=== PATIENT | male | born 1940 | race Caucasian/White ===

== ENCOUNTER 2019-01-09 15:21 | Emergency (ER) | payer BC ==
[~2019-01-09] VITALS: Ht 167.6 cm; Wt 53.5 kg
[2019-01-09] MEDS ORDERED: cefTRIAXone SOD 1,000 MG VL IM ONE (16:45)
[2019-01-09 17:27] VITALS: BP 142/90
== END 2019-01-09 17:45 | disposition home or self-care (01) ==
LOC: ER 15:30
DX: L03.011 Cellulitis of right finger (principal)
CPT/HCPCS: 73130; 96372; 99283; J0696

== ENCOUNTER 2025-02-03 16:59 | Inpatient (IN) | payer BC ==
[~2025-02-03] VITALS: Ht 170.2 cm; Wt 58.8 kg
--- NOTE | 2025-02-03 17:13 | ED.PDOC ---
Musculoskeletal HPI Comments Discharge diagnosis 05/17/2013 - Fracture left femoral neck Had Placement of screws left femoral neck fracture- 05/15/13 HPI: 84-year-old male presents to the emergency department via EMS with a chief complaint of LT hip pain. Per EMS, patient's friend called 911 due to patient complaining of LT hip pain. Patient is a poor historian, states he has been experiencing LT hip pain since high school. No other symptoms or modifying factors present at this time. Initial Vitals BP: 138/88 HR: 84 RR: 16 O2 Sat: 96% Past Medical history: unknown Past Surgical history: unknown Medications: unknown Social History: unknown Allergies: NKDA HPI: Poor Historian. Past Medical History: Past Surgical History: REVIEW OF SYSTEMS: CONSTITUTIONAL: Denies acute: fever, diaphoresis, chills, generalized weakness. HEAD: Denies acute: headache, photophobia Eyes: Denies acute: Double vision, vision loss, eye pain, eye discharge. EARS: Denies acute: tinnitus, hearing loss, ear discharge, ear pain, THROAT: Denies acute: sore throat, swelling, difficulty swallowing , pain with swallowing, change in voice. NECK: Denies acute: neck pain, neck swelling, stiff neck. HEART: Denies acute : chest pain, palpitations, LUNGS: Denies acute: SOB, wheezing, cough, hemoptysis ABDOMEN: Denies acute: abdominal pain, Nausea, Vomiting, diarrhea, melena , hematemesis, hematochezia SKIN: Denies acute: rash, redness, lesions, itchiness. EXTREMITIES: Denies acute: calf pain, numbness, tingling, weakness, Denies acute: Low back pain. Neuro: Denies acute: focal neurological deficit, motor or sensory focal neurological deficit, tremors, seizure like activity, confusion, dizziness, change in mental status, loss of bowel or bladder function, cauda equina like symptoms. : Denies acute: dysuria, hematuria, flank pain, increase in urinary frequency. PSYCH: Denies acute: hallucination, suicidal ideation, homicidal ideation. PHYSICAL EXAM: General: ---no-----acute distress, awake and alert. Head: normocephalic, atraumatic. Neck: supple, trachea is midline, no swelling. Throat: Normal phonation. Eyes:, no erythema, no purulent discharge, no proptosis, no icterus. Heart: regular rate, regular rhythm, no significant murmur appreciated. Lungs: no apparent respiratory distress, Able to speak in full sentences. No wheezing, no rhonchi, no crackles. No stridors Clear to auscultation bilaterally. Abdomen: non tender to palpation, non distended, soft, no guarding, no rebound, + bowel sounds. Neuro: Awake, Alert, oriented to name, self, situation, follows commands GCS=15. Speech is normal. Skin: no petechia, no purpura, no cyanosis, non-pale, not jaundice. Lower extremities: --no - Pitting edema no deformity, no focal swelling, no calf TTP. Decreased range of motion of the left lower extremity secondary to left hip pain. Unable to fully flex the left hip and knee. Patient is neurovascularly intact in the affected extremity. Motor and sensory are present distally. Pedal pulses palpable. Makes eye contact. moves all four extremities. Face: no apparent facial droop. When attempting to stand up it is very difficult for the patient. He is unable to bear weight on his left hip. Pedal pulses are palpable. ED COURSE: DISCLAIMER: This medical document was created using an electronic medical record system with voice recognition software and computerized dictation system. Although this document has been carefully reviewed, there might still be some phonetic and typographical errors. Occasional wrong-word or "sound-alike" substitutions may have occurred due to the inherent limitations of voice recognition software. These areas are purely typographical due to imperfections of the software programs and do not reflect any compromise in the patient's medical care. Please read the chart carefully and recognize, using context, where these substitutions have occurred. Chief Complaint: Upper Extremity Time Seen by MD: 17:05 Primary Care Provider: nate Ivory Notes: Medications, Allergies Allergies: Coded Allergies: NO KNOWN ALLERGIES (Unverified , 05/14/13) Home Meds No Active Prescriptions or Reported Meds Information Source: Patient, Emergency Med Personnel Mode of Arrival: EMS Location: Left Extremity Location: Hip Timing: Months Prehospital treatment: None Severity: Moderate Bear Weight: Limited Pain: Moderate Mechanism: Spontaneous Onset of Symptoms: Spontaneous Symptoms: Pain DVT Risk Factors: NONE Past Medical History PAST MEDICAL HISTORY: Unknown Surgical History: Denies all surgeries Family History Family History: Unobtainable Social History Smoker: Unknown Alcohol: Unknown Drugs: Unknown Lives In: Home Was a procedure done? Was a procedure done?: No Differential Diagnosis EXT Differential Diagnosis: Compartment Syndrome, Fracture, Sprain, Dislocation, Gout, DJD, Contusion, Strain, Septic, Neurovascular injury, Arthritis, Bursitis X-Ray, Labs, Meds, VS Vital Signs Date Time Temp Pulse Resp B/P (MAP) Pulse Ox O2 Delivery O2 Flow Rate FiO2 02/03/25 19:05 97.6 85 16 127/67 (87) 96 97.6 02/03/25 17:00 98.0 84 16 138/88 (105) 96 98.0 Lab Test 02/03/25 18:35 Range/Units White Blood Count 8.6 4.4-10.8 10^3/uL Red Blood Count 4.58 4.5-5.90 10^6/uL Hemoglobin 14.4 13.5-17.5 g/dL Hematocrit 41.5 41.0-53.0 % Mean Corpuscular Volume 90.6 80.0-100.0 fL Mean Corpuscular Hemoglobin 31.4 28.0-32.0 pg Mean Corpuscular Hemoglobin Concent 34.7 32.0-36.0 g/dL Red Cell Distribution Width 13.8 11.8-14.3 % Platelet Count 179 140-450 10^3/uL Mean Platelet Volume 8.4 6.9-10.8 fL Neutrophils (%) (Auto) 81.2 H 37.0-80.0 % Lymphocytes (%) (Auto) 11.9 10.0-50.0 % Monocytes (%) (Auto) 6.2 0.0-12.0 % Eosinophils (%) (Auto) 0.3 0.0-7.0 % Basophils (%) (Auto) 0.4 0.0-2.0 % Neutrophils # (Auto) 7.0 1.6-8.6 10 ^3/uL Lymphocytes # (Auto) 1.0 0.4-5.4 10 ^3/uL Monocytes # (Auto) 0.5 0-1.3 10 ^3/uL Eosinophils # (Auto) 0 0-0.8 10 ^3/uL Basophils # (Auto) 0 0-0.2 10 ^3/uL Nucleated Red Blood Cells 0.0 % Sodium Level 142 136-145 mmol/L Potassium Level 3.8 3.5-5.1 mmol/L Chloride Level 108 H 98-107 mmol/L Carbon Dioxide Level 26 20-31 mmol/L Anion Gap 8 5-15 Blood Urea Nitrogen 18 9-23 mg/dL Creatinine 1.20 0.700-1.30 mg/dL Glomerular Filtration Rate Calc 59 >90 mL/min BUN/Creatinine Ratio 15.0 10.0-20.0 Serum Glucose 109 H 74-106 mg/dL Calcium Level 9.9 8.7-10.4 mg/dL Total Bilirubin 1.2 H 0.2-1.0 mg/dL Aspartate Amino Transferase (AST) 22 <34 U/L Alanine Aminotransferase (ALT) 21 7-40 U/L Alkaline Phosphatase 75 46-116 U/L Total Protein 8.0 5.7-8.2 g/dL Albumin 4.8 3.2-4.8 g/dL [place] [id number] Ph: [phone] DIAGNOSTIC IMAGING Diagnostic Imaging Report : [id number] Signed PATIENT: JESSICA RASHIDCCT: [id number] UNIT: [id number] : 1940 LOC: ER ROOM / BED: / AGE / SEX: 84 / M ADM STATUS: REG ER SERVICE [id number] ORDERING PHYSICIAN: KUSH RAMON DO PROCEDURE(s): ABPL - CT AB PEL WO CON-NO ORAL OR IV REASON: L hip pain fx ORDER NUMBER(s): [id number], ACCESSION NUMBER(s): [id number] Exam: CT CT AB PEL WO CON-NO ORAL OR IV History: L hip pain fx, abdominal pain Comparison Study: None TECHNIQUE: Multidetector CT of the abdomen and pelvis was performed from lung bases to pubic symphysis. Imaging was performed without IV contrast. Axial, coronal, and sagittal multiplanar reformats were obtained from the axial data set by the technologist. RADIATION DOSE: DLP 271.17 mGy.cm; CTDI vol 5.2 mGy. Findings: Limited evaluation of the solid organs in the absence of IV contrast. Liver: Unremarkable. Spleen: Indeterminate approximately 2.9 cm lesion within the spleen with additional too small to characterize splenic lesions. Pancreas: Unremarkable. Gallbladder: Unremarkable. Adrenals: Unremarkable Kidneys: Right renal cyst. No hydronephrosis. Pelvic Viscera: Enlarged prostate. Vasculature: Mild atherosclerotic aortoiliac calcifications. Retroperitoneum: There is mild presacral stranding, nonspecific. Bowel: Suboptimally evaluated without evidence for bowel obstruction. Musculoskeletal: There is an age-indeterminate mild compression fracture of the superior endplate of L3 without osseous retropulsion. Age indeterminate though likely acute nondisplaced fractures of the superior and inferior left pubic ramus. Surgical screws are present within the left proximal femur. Soft tissues: Unremarkable Lungs: Emphysema. Impression: 1. Age-indeterminate though likely acute nondisplaced fractures of the left superior and inferior pubic rami. 2. Age-indeterminate mild compression fracture of the superior endplate of L3 without osseous retropulsion. 3. Mild presacral stranding, nonspecific. 4. Indeterminate approximately 2.8 cm splenic lesion. Comparison with any prior outside imaging is suggested in assessing acuity given interval change. This may be further evaluated with a nonemergent MRI of the abdomen if clinically indicated. ATED BY: SUMIT ROMO MD DICTATED DATE/TIME: 02/03/251906 SIGNED BY: SUMIT ROMO MD SIGNED DATE/TIME: 02/03/251906 CC: Time of 1ST Reevaluation: 17:35 Reevaluation 1ST: Unchanged Time of 2ND Reevaluation: 21:16 Reevaluation 2ND: Unchanged Patient Education/Counseling: Diagnosis, Treatment Family Education/Counseling: No Family Present Comments Patient presented with the above HPI.---left hip pain---workup was initiated. patient was found with the above mentioned diagnosis. the following medications were ordered: please refer to order lists of meds and tests obtained by myself Dr. Ramon. Patient ED course and VS have been stabilized. Patient has been reassessed in the ED and remained in a stable condition. Patient has been observed in the ED adequate length of time to insure improvement/stability. Escalation of care considered: Consideration of escalation to observation or admission Patient is a fall risk. Patient unable to ambulate on his extremity. No family members available at bedside. Patient was ADMITTED to the medicine team for further evaluation and treatment of their presentation. All the reports of any imaging studies that were ordered by myself were reviewed by myself. Departure 1 Departure Time of Disposition: 17:24 Impression: Primary Impression: Left hip pain Additional Impressions: Difficulty in walking Pubic ramus fracture Abnormal CT scan Compression fracture of L3 vertebra Risk for falls Disposition: ADMITTED INPATIENT Admit to: Tele Condition: Guarded e-Prescriptions No Active Prescriptions or Reported Meds Discharged With: Self Critical Care Note Critical Care Time?: No I personally scribed for KUSH RAMON DO ([email or web address]) on 02/03/25 at 17:13. Electronically submitted by Lauren Zamora ([email or web address]). I personally scribed for KUSH RAMON DO ([email or web address]) on 02/03/25 at 17:23. Electronically submitted by Lauren Zamora ([email or web address]). I personally scribed for KUSH RAMON DO ([email or web address]) on 02/03/25 at 19:19. Electronically submitted by Lauren Zamora ([email or web address]). I personally scribed for KUSH RAMON DO ([email or web address]) on 02/03/25 at 19:20. Electronically submitted by Lauren Zamora ([email or web address]). KUSH RAMON DO Feb 03, 2025 17:13
[2025-02-03 19:06] LABS: Basophils # (auto) 0 10 ^3/uL (0-0.2); Basophils % (auto) 0.4 % (0.0-2.0); Eosinophils # (auto) 0 10 ^3/uL (0-0.8); Eosinophils % (auto) 0.3 % (0.0-7.0); Hematocrit 41.5 % (41.0-53.0); Hemoglobin 14.4 g/dL (13.5-17.5); Lymphocytes % (auto) 11.9 % (10.0-50.0); Mean Corpuscular Hemoglobin 31.4 pg (28.0-32.0); Mean Corpuscular Hgb Conc. 34.7 g/dL (32.0-36.0); Mean Corpuscular Volume 90.6 fL (80.0-100.0); Monocytes # (auto) 0.5 10 ^3/uL (0-1.3); Monocytes % (auto) 6.2 % (0.0-12.0); Neutrophils % (auto) 81.2 % (37.0-80.0); Platelet Count (auto) 179 10^3/uL (140-450); Red Blood Cells 4.58 10^6/uL (4.5-5.90); Red Cell Distribution Width 13.8 % (11.8-14.3); White Blood Cell 8.6 10^3/uL (4.4-10.8)
--- NOTE | 2025-02-03 19:11 | DVH ---
Exam: CT CT AB PEL WO CON-NO ORAL OR IV History: L hip pain fx, abdominal pain Comparison Study: None TECHNIQUE: Multidetector CT of the abdomen and pelvis was performed from lung bases to pubic symphysi s. Imaging was performed without IV contrast. Axial, coronal, and sagittal multiplanar reformats were obtained from the axial data set by the technologist. RADIATION DOSE: DLP 271.17 mGy.cm; CTDI vol 5.2 mGy. Findings: Limited evaluation of the solid organs in the absence of IV contrast. Liver: Unremarkable. Spleen: Indeterminate approximately 2.9 cm lesion within the spleen with additional too small to mariluz racterize splenic lesions. Pancreas: Unremarkable. Gallbladder: Unremarkable. Adrenals: Unremarkable Kidneys: Right renal cyst. No hydronephrosis. Pelvic Viscera: Enlarged prostate. Vasculature: Mild atherosclerotic aortoiliac calcifications. Retroperitoneum: There is mild presacral stranding, nonspecific. Bowel: Suboptimally evaluated without evidence for bowel obstruction. Musculoskeletal: There is an age-indeterminate mild compression fracture of the superior endplate of L3 without osseous retropulsion. Age indeterminate though likely acute nondisplaced fractures of the superior and inferior left pubic ramus. Surgical screws are present within the left proximal femur. Soft tissues: Unremarkable Lungs: Emphysema. Impression: 1. Age-indeterminate though likely acute nondisplaced fractures of the left superior and inferior pub ic rami. 2. Age-indeterminate mild compression fracture of the superior endplate of L3 without osseous retropu lsion. 3. Mild presacral stranding, nonspecific. 4. Indeterminate approximately 2.8 cm splenic lesion. Comparison with any prior outside imaging is s uggested in assessing acuity given interval change. This may be further evaluated with a nonemergent MRI of the abdomen if clinically indicated.
[2025-02-03 19:30] LABS: Alanine Aminotransferase 21 U/L (7-40); Alkaline Phosphatase 75 U/L (46-116); Anion Gap 8 (5-15); Aspartate Aminotransferase 22 U/L (<34); Blood Urea Nitrogen 18 mg/dL (9-23); Calcium 9.9 mg/dL (8.7-10.4); Carbon Dioxide 26 mmol/L (20-31); Potassium 3.8 mmol/L (3.5-5.1); Sodium 142 mmol/L (136-145)
[2025-02-03 19:32] LABS: Albumin 4.8 g/dL (3.2-4.8); Bilirubin, Total 1.2 mg/dL (0.2-1.0); Chloride 108 mmol/L (98-107); Glucose 109 mg/dL (74-106)
[2025-02-03] MEDS ORDERED: ACETAMINOPHEN 325 MG TAB PO ONE (22:30)
[2025-02-03] MEDS ORDERED: MORPHINE SULFATE INJ 2 MG/ml SYRG IV PRN ×2 (22:30→23:30)
[2025-02-03] MEDS ORDERED: ONDANSETRON HCL 4 MG/2 ML VIAL IV PRN (22:30)
[2025-02-03] MEDS ORDERED: DOCUSATE SOD 100 MG CAP PO PRN (22:30)
--- NOTE | 2025-02-03 23:23 | DVHHP2 ---
History of Present Illness Reason for Visit: Pubic ramus fracture History of Present Illness The patient is a 84-year-old male with unknown past medical history presented to [facility] ED with complaint of left hip pain. Patient's friend called 911 due to constant intensive left hip pain, rating 10/10, getting worse that prompted this visit. Patient reports he has been experiencing left hip pain since high school. Patient was seen and evaluated in the ED, laboratory data shows WBC 8.6, platelets 179, sodium 142, potassium 3.8, BUN 18, creatinine 1.20, glucose 109, calcium 9.9, total bilirubin 1.2, blood pressure 128/66, heart rate 85, temperature 97.6 F, O2 saturation 96% on room air. Abdo men/pelvis CT revealing age indeterminate though likely acute nondisplaced fracture of the left superior and inferior pubic rami, age indeterminate mild compression fracture of the superior endplate of L3 without osseous retropulsion, mild presacral stranding, nonspecific; indeterminate a proximally 2.8 cm splenic lesion. Patient was given morphine sulfate 2 mg IV x1, please see medication orders section in the computer. On my assessment, patient denied chest pain, no headache, no dizziness, no shortness a breath, no abdominal pain, no nausea, no vomiting, no fever, no chills. Patient was admitted for further evaluation and medical management. Past Medical History Hip pain Past Surgical History Denies all surgeries Family History Reviewed, noncontributory to the management of this case. Past Social History The patient lives at home, denies smoking, alcohol or illicit drugs abuse. Review of Systems Constitutional: Yes: Weakness; No: Fever, Chills, Sweats, Malaise, Other Eyes: No: Pain, Vision change, Conjunctivae inflammation, Eyelid inflammation, Other, Redness ENT: No: Ear pain, Ear discharge, Nose pain, Nose discharge, Nose congestion, Mouth pain, Mouth swelling, Throat pain, Throat swelling, Other Respiratory: No: Cough, Dry, Shortness of breath, SOB with excertion, Wheezing, Hemoptysis, Pleuritic Pain, Sputum, Wheezing, Other Cardiovascular: No: Chest Pain, Palpitations, Orthopnea, Paroxysmal Noc. Dyspnea, Edema, Lt Headedness, Other Gastrointestinal: No: Nausea, Vomiting, Abdominal Pain, Diarrhea, Constipation, Melena, Hematochezia, Other Genitourinary: No Dysuria, No Frequency, No Incontinence, No Hematuria, No Ret ention, No Other Musculoskeletal: other (Left hip pain), back pain; No: neck pain, shoulder pain, arm pain, hand pain, leg pain, foot pain Skin: No: Rash, Lesions, Jaundice, Bruising, Other Neurological: No: Weakness, Numbness, Incoordination, Change in speech, Confusion, Seizures, Other Allergies: Coded Allergies: NO KNOWN ALLERGIES (Unverified , 05/14/13) Medications Current Medications Medications Dose Ordered Sig/Titus Route Start Time Stop Time Status Last Admin Dose Admin Atorvastatin Calcium 10 mg HS PO 02/04/25 22:00 Tamsulosin HCl 0.4 mg QPM PO 02/04/25 18:00 Donepezil HCl 10 mg HS PO 02/04/25 22:00 Sodium Chloride 10 ml Q8HR IV 02/04/25 06:00 Acetaminophen/ Hydrocodone Bitart 1 tab Q4HP PRN PO 02/03/25 22:30 Ondansetron HCl 4 mg Q4HP PRN IV 02/03/25 22:30 Docusate Sodium 100 mg BIDPRN PRN PO 02/03/25 22:30 Acetaminophen 650 mg Q6HP PRN PO 02/03/25 22:30 Morphine Sulfate 2 mg Q4HPRN PRN IV 02/03/25 22:30 Exam Vital Signs Vital Signs Date Time Temp Pulse Resp B/P (MAP) Pulse Ox O2 Delivery O2 Flow Rate FiO2 02/03/25 22:51 97.9 81 16 147/77 (100) 96 97.9 General Appearance: Alert, Oriented X3, Cooperative, No acute distress HEENT: Atraumatic, PERRLA, EOMI, Mucous membr. moist/pink Respiratory: Normal air movement Cardiovascular: Regular rate, Normal S1, Normal S2, No murmurs Abdominal: Normal bowel sounds, Soft, No tenderness, No hepatospenomegaly, No masses Extremities: No clubbing, No cyanosis, No edema, Normal pulses, Other (Hip tenderness) Skin: No rashes, No breakdown, No significant lesion Neuro: Normal speech, Normal tone, Sensation intact, Cranial nerves 3-12 NL, Reflexes 2+, Other (Generalized weakness, unsteady gait.) Psych/Mental Status: Mental status NL, Mood NL Labs/Xrays Labs Test 02/03/25 18:35 Range/Units White Blood Count 8.6 4.4-10.8 10^3/uL Red Blood Count 4.58 4.5-5.90 10^6/uL Hemoglobin 14.4 13.5-17.5 g/dL Hematocrit 41.5 41.0-53.0 % Mean Corpuscular Volume 90.6 80.0-100.0 fL Mean Corpuscular Hemoglobin 31.4 28.0-32.0 pg Mean Corpuscular Hemoglobin Concent 34.7 32.0-36.0 g/dL Red Cell Distribution Width 13.8 11.8-14.3 % Platelet Count 179 140-450 10^3/uL Mean Platelet Volume 8.4 6.9-10.8 fL Neutrophils (%) (Auto) 81.2 H 37.0-80.0 % Lymphocytes (%) (Auto) 11.9 10.0-50.0 % Monocytes (%) (Auto) 6.2 0.0-12.0 % Eosinophils (%) (Auto) 0.3 0.0-7.0 % Basophils (%) (Auto) 0.4 0.0-2.0 % Neutrophils # (Auto) 7.0 1.6-8.6 10 ^3/uL Lymphocytes # (Auto) 1.0 0.4-5.4 10 ^3/uL Monocytes # (Auto) 0.5 0-1.3 10 ^3/uL Eosinophils # (Auto) 0 0-0.8 10 ^3/uL Basophils # (Auto) 0 0-0.2 10 ^3/uL Nucleated Red Blood Cells 0.0 % Sodium Level 142 136-145 mmol/L Potassium Level 3.8 3.5-5.1 mmol/L Chloride Level 108 H 98-107 mmol/L Carbon Dioxide Level 26 20-31 mmol/L Anion Gap 8 5-15 Blood Urea Nitrogen 18 9-23 mg/dL Creatinine 1.20 0.700-1.30 mg/dL Glomerular Filtration Rate Calc 59 >90 mL/min BUN/Creatinine Ratio 15.0 10.0-20.0 Serum Glucose 109 H 74-106 mg/dL Calcium Level 9.9 8.7-10.4 mg/dL Total Bilirubin 1.2 H 0.2-1.0 mg/dL Aspartate Amino Transferase (AST) 22 <34 U/L Alanine Aminotransferase (ALT) 21 7-40 U/L Alkaline Phosphatase 75 46-116 U/L Total Protein 8.0 5.7-8.2 g/dL Albumin 4.8 3.2-4.8 g/dL PATIENT: JESSICA RASHIDCCT: [id number] UNIT: [id number] : 1940 LOC: ER ROOM / BED: / AGE / SEX: 84 / M ADM STATUS: REG ER SERVICE [id number] ORDERING PHYSICIAN: KUSH RAMON DO PROCEDURE(s): ABPL - CT AB PEL WO CON-NO ORAL OR IV REASON: L hip pain fx ORDER NUMBER(s): [id number], ACCESSION NUMBER(s): [id number] Exam: CT CT AB PEL WO CON-NO ORAL OR IV History: L hip pain fx, abdominal pain Comparison Study: None TECHNIQUE: Multidetector CT of the abdomen and pelvis was performed from lung bases to pubic symphysis. Imaging was performed without IV contrast. Axial, coronal, and sagittal multiplanar reformats were obtained from the axial data set by the technologist. RADIATION DOSE: DLP 271.17 mGy.cm; CTDI vol 5.2 mGy. Findings: Limited evaluation of the solid organs in the absence of IV contrast. Liver: Unremarkable. Spleen: Indeterminate approximately 2.9 cm lesion within the spleen with additional too small to characterize splenic lesions. Pancreas: Unremarkable. Gallbladder: Unremarkable. Adrenals: Unremarkable Kidneys: Right renal cyst. No hydronephrosis. Pelvic Viscera: Enlarged prostate. Vasculature: Mild atherosclerotic aortoiliac calcifications. Retroperitoneum: There is mild presacral stranding, nonspecific. Bowel: Suboptimally evaluated without evidence for bowel obstruction. Musculoskeletal: There is an age-indeterminate mild compression fracture of the superior endplate of L3 without osseous retropulsion. Age indeterminate though likely acute nondisplaced fractures of the superior and inferior left pubic ramus. Surgical screws are present within the left proximal femur. Soft tissues: Unremarkable Lungs: Emphysema. Impression: 1. Age-indeterminate though likely acute nondisplaced fractures of the left superior and inferior pubic rami. 2. Age-indeterminate mild compression fracture of the superior endplate of L3 without osseous retropulsion. 3. Mild presacral stranding, nonspecific. 4. Indeterminate approximately 2.8 cm splenic lesion. Comparison with any prior outside imaging is suggested in assessing acuity given interval change. This may be further evaluated with a nonemergent MRI of the abdomen if clinically indicated. Assessment/Plan Assessment/Plan Pubic ramus fracture Left hip pain Risk for falls Difficulty in walking Abnormal CT scan Compression fracture of L3 vertebra Plan 1. Admit to telemetry units 2. Breathing treatment 3. Pain control management 4. Management of fluids and electrolytes 5. Consultation for orthopedic/hospitalist 6. Diagnostic tests abdomen/pelvis CT 7. DVT prophylaxis on SCDs 8. Repeat labs CBC, CMP in a.m. 9. Continue with current medical management 10. Treatment plan discussed with patient and RN. Patient verbalized understanding. Plan discussed with: Patient, Daughter, Other (RN) My Orders Orders - ALETHA RIZVI DNP Procedure Category Date Status Time Atorvastatin (Lipitor) PHA 02/04/25 In Process 22:00 Tamsulosin PHA 02/04/25 In Process Hydrochloride (Flomax) 18:00 Donepezil Tablet PHA 02/04/25 In Process (Aricept Tablet) 22:00 Allergies ANDI 02/03/25 In Process 22:28 Code Status CODE 02/03/25 Transmitted 22:28 Sodium Chloride Lock PHA 02/04/25 In Process (Saline Lock Ns) 06:00 Oxygen Per Hour RT 02/03/25 Transmitted 22:28 Hydrocodone-Acet PHA 02/03/25 In Process 5/325mg Tab (Angier 22:30 Ondansetron Hcl PHA 02/03/25 In Process (Zofran) 22:30 Docusate Sodium PHA 02/03/25 In Process Capsule (Colace 22:30 Fall Risk Precautions ANDI 02/03/[address] 22:28 Complete Blood Count LAB 02/04/25 Verified 04:00 Comprehensive LAB 02/04/25 Verified Metabolic Panel 04:00 Cardiac DIET 02/04/25 Transmitted Diet-2gna,Lofat,Lochol Breakfast Condition: Serious ANDI 02/03/25 In Process 22:28 Acetaminophen Tablet PHA 02/03/25 In Process (Tylenol Tablet) 22:30 Maintain Bed Rest ANDI 02/03/25 In Process 22:28 Morphine Sulfate PHA 02/03/25 In Process Injection 22:30 Sequential ANDI 02/03/25 In Process Compression Device * Orthopedic Consult CONS 02/03/25 Transmitted 22:31 Problem List: (1) Pubic ramus fracture (2) Risk for falls (3) Left hip pain (4) Abnormal CT scan (5) Difficulty in walking (6) Compression fracture of L3 vertebra Date of Service: Feb 03, 2025 Billing Provider: ALETHA RIZVI DNP Common Visit Codes: 85110-[id number] INP/OBS CARE (HIGH) ALETHA RIZVI DNP Feb 03, 2025 23:23
[2025-02-03] MEDS ORDERED: NITROGLYCERIN 0.4 MG SL TAB SL PRN (23:30)
[2025-02-04] VITALS (8 sets, daily range): BP systolic 125–140; BP diastolic 72–80; PULSE 66–81; RESP 16–22; TEMP 97.1–98.3; O2SAT 97–98
[2025-02-04] MEDS: SODIUM CHLOR 0.9% PF (SALINE LOCK) 10ML VIAL/SYR IV SCH (06:24)
[2025-02-04 07:27] LABS: Basophils # (auto) 0 10 ^3/uL (0-0.2); Basophils % (auto) 0.1 % (0.0-2.0); Eosinophils # (auto) 0.1 10 ^3/uL (0-0.8); Eosinophils % (auto) 0.8 % (0.0-7.0); Hematocrit 37.8 % (41.0-53.0); Hemoglobin 13.2 g/dL (13.5-17.5); Lymphocytes # (auto) 0.9 10 ^3/uL (0.4-5.4); Lymphocytes % (auto) 13.3 % (10.0-50.0); Mean Corpuscular Hemoglobin 31.6 pg (28.0-32.0); Mean Corpuscular Volume 90.4 fL (80.0-100.0); Monocytes # (auto) 0.5 10 ^3/uL (0-1.3); Monocytes % (auto) 7.2 % (0.0-12.0); Neutrophils # (auto) 5.1 10 ^3/uL (1.6-8.6); Neutrophils % (auto) 78.6 % (37.0-80.0); Platelet Count (auto) 146 10^3/uL (140-450); Red Blood Cells 4.18 10^6/uL (4.5-5.90); Red Cell Distribution Width 13.8 % (11.8-14.3); White Blood Cell 6.5 10^3/uL (4.4-10.8)
[2025-02-04 07:30] LABS: Alanine Aminotransferase 17 U/L (7-40); Albumin 4.2 g/dL (3.2-4.8); Alkaline Phosphatase 65 U/L (46-116); Anion Gap 9 (5-15); Aspartate Aminotransferase 17 U/L (<34); BUN/Creatinine Ratio 18.5 (10.0-20.0); Blood Urea Nitrogen 22 mg/dL (9-23); Calcium 9.5 mg/dL (8.7-10.4); Carbon Dioxide 26 mmol/L (20-31); Glucose 105 mg/dL (74-106); Potassium 3.8 mmol/L (3.5-5.1); Sodium 144 mmol/L (136-145); Total Protein 7.1 g/dL (5.7-8.2)
[2025-02-04 07:33] LABS: Bilirubin, Total 1.5 mg/dL (0.2-1.0); Chloride 109 mmol/L (98-107)
--- NOTE | 2025-02-04 13:55 | DVHINCON2 ---
Date of service: Feb 04, 2025 Reason for Consultation Left pubic ramus fracture History of Present Illness Mr. Devries is an 84-year-old male who was brought to the hospital due to complaints of persistent left hip pain that has been occurring after a fall with the patient could not remember exactly when he fell just remembers falling a while ago. Patient reports that he is able to ambulate but with severe pain so has been bed resting to stay comfortable. Patient was otherwise feeling well denying any other complaint or concern during my evaluation. Past Medical History Hip pain Past Surgical History Denies Family History Noncontributory Social History Patient denies smoking, EtOH, or illicit substance abuse Allergies: Coded Allergies: NO KNOWN ALLERGIES (Unverified , 05/14/13) Home Meds No Active Prescriptions or Reported Meds Current Medications Current Medications Medications (Trade) Dose Ordered Sig/Titus Route PRN Reason Start Time Stop Time Status Last Admin Atorvastatin Calcium (Lipitor) 10 mg HS PO 02/04/25 22:00 Tamsulosin HCl (Flomax) 0.4 mg QPM PO 02/04/25 18:00 Donepezil HCl (Aricept Tablet) 10 mg HS PO 02/04/25 22:00 Sodium Chloride (Saline Lock Ns) 10 ml Q8HR IV 02/04/25 06:00 02/04/25 06:24 Acetaminophen/ Hydrocodone Bitart ([place] 5/325MG Tab) 1 tab Q4HP PRN PO MODERATE PAIN (4-6 PAIN SCALE) 02/03/25 22:30 Ondansetron HCl (Zofran) 4 mg Q4HP PRN IV NAUSEA / VOMITING 02/03/25 22:30 Docusate Sodium (Colace Capsule) 100 mg BIDPRN PRN PO FOR CONSTIPATION 02/03/25 22:30 Acetaminophen (Tylenol Tablet) 650 mg Q6HP PRN PO PAIN SCALE 1-3 OR TEMP>100.4 02/03/25 22:30 Morphine Sulfate 2 mg Q4HPRN PRN IV SEVERE PAIN (7-10 PAIN SCALE) 02/03/25 22:30 Nitroglycerin (Ntrostat Sublingual) 0.4 mg Q5MINP PRN SL FOR CHEST PAIN 02/03/25 23:30 Morphine Sulfate 2 mg Q30M PRN IV FOR CHEST PAIN 02/03/25 23:30 Review of Systems 10 point review of systems negative except as per HPI Vital Signs Vital Signs Date Time Temp Pulse Resp B/P (MAP) Pulse Ox O2 Delivery O2 Flow Rate FiO2 02/04/25 13:23 97.6 67 16 127/80 (96) 97 97.6 02/04/25 08:00 Room Air* 0 21 Physical Exam General appearance: A&O x4 in no acute distress HEENT: Normal ENT inspection, pharynx normal, TMs normal Neck: Full range of motion, nontender, normal inspection Respiratory: Chest nontender, without accessory muscle use, no respiratory distress Cardiovascular: No edema, no JVD, normal peripheral pulses Gastrointestinal: Soft, nontender, no organomegaly. Musculoskeletal: Left hip range of motion grossly limited with pain on slight movement, no calf tenderness, normal capillary refill, no pedal edema, neurovascularly intact. Skin: Dry, normal color, warm Lymphatic: No adenopathy Labs/Diagnostic Data Labs Test 02/04/25 06:35 Range/Units White Blood Count 6.5 4.4-10.8 10^3/uL Red Blood Count 4.18 L 4.5-5.90 10^6/uL Hemoglobin 13.2 L 13.5-17.5 g/dL Hematocrit 37.8 L 41.0-53.0 % Mean Corpuscular Volume 90.4 80.0-100.0 fL Mean Corpuscular Hemoglobin 31.6 28.0-32.0 pg Mean Corpuscular Hemoglobin Concent 35.0 32.0-36.0 g/dL Red Cell Distribution Width 13.8 11.8-14.3 % Platelet Count 146 140-450 10^3/uL Mean Platelet Volume 8.7 6.9-10.8 fL Neutrophils (%) (Auto) 78.6 37.0-80.0 % Lymphocytes (%) (Auto) 13.3 10.0-50.0 % Monocytes (%) (Auto) 7.2 0.0-12.0 % Eosinophils (%) (Auto) 0.8 0.0-7.0 % Basophils (%) (Auto) 0.1 0.0-2.0 % Neutrophils # (Auto) 5.1 1.6-8.6 10 ^3/uL Lymphocytes # (Auto) 0.9 0.4-5.4 10 ^3/uL Monocytes # (Auto) 0.5 0-1.3 10 ^3/uL Eosinophils # (Auto) 0.1 0-0.8 10 ^3/uL Basophils # (Auto) 0 0-0.2 10 ^3/uL Nucleated Red Blood Cells 0.0 % Sodium Level 144 136-145 mmol/L Potassium Level 3.8 3.5-5.1 mmol/L Chloride Level 109 H 98-107 mmol/L Carbon Dioxide Level 26 20-31 mmol/L Anion Gap 9 5-15 Blood Urea Nitrogen 22 9-23 mg/dL Creatinine 1.19 0.700-1.30 mg/dL Glomerular Filtration Rate Calc 60 >90 mL/min BUN/Creatinine Ratio 18.5 10.0-20.0 Serum Glucose 105 74-106 mg/dL Calcium Level 9.5 8.7-10.4 mg/dL Total Bilirubin 1.5 H 0.2-1.0 mg/dL Aspartate Amino Transferase (AST) 17 <34 U/L Alanine Aminotransferase (ALT) 17 7-40 U/L Alkaline Phosphatase 65 46-116 U/L Total Protein 7.1 5.7-8.2 g/dL Albumin 4.2 3.2-4.8 g/dL Abdominal and pelvic CT scan reviewed and demonstrated: Age-indeterminate though likely acute nondisplaced fractures of the left superior and inferior pubic rami. Age-indeterminate mild compression fracture of the superior endplate of L3 without osseous retropulsion. Mild presacral stranding, nonspecific. Indeterminate approximately 2.8 cm splenic lesion. Comparison with any prior outside imaging is suggested in assessing acuity given interval change. This may be further evaluated with a nonemergent MRI of the abdomen if clinically indicated. Assessment Left nondisplaced superior and inferior pubic ramus fracture Plan/Recommendation I had a lengthy discussion with the patient and after discussing his case and reviewing his imaging studies with Dr. Smart we have recommended against any surgical intervention at this time and instead advised to continue with conservative treatment with pain control and advised the patient to remain partially weight-bearing for the next four weeks with the assistance of a walker and then may remain weight-bearing as tolerated. I advised the patient to follow up with our office on an outpatient basis for further imaging and evaluation of his fracture once he has been discharged. He understood and agreed. Thank you for allowing us to participate in the care of your patient. Plan discussed with: Patient TORIN BURROWS Feb 04, 2025 13:55
--- NOTE | 2025-02-04 14:10 | DVHPN2 ---
Reviewed: Care Plan, H&P, Labs, Medications, Previous Orders, Radiology Changes from previous H/P or p: No Changes Eyes: No Pain, No Vision change, No Conjunctivae inflammation, No Eyelid inflammation, No Other, No Redness ENT: No Ear pain, No Ear discharge, No Nose pain, No Nose discharge, No Nose congestion, No Mouth pain, No Mouth swelling, No Throat pain, No Throat swelling, No Other Cardiovascular: No Chest Pain, No Palpitations, No Orthopnea, No Paroxysmal Noc. Dyspnea, No Edema, No Lt Headedness, No Other Respiratory: No Cough, No Dry, No Shortness of breath, No SOB with excertion, No Wheezing, No Hemoptysis, No Pleuritic Pain, No Sputum, No Other Gastrointestinal: No Nausea, No Vomiting, No Abdominal Pain, No Diarrhea, No Constipation, No Melena, No Hematochezia, No Other Genitourinary: No Dysuria, No Frequency, No Incontinence, No Hematuria, No Retention, No Other Musculoskeletal: other (Left hip pain); No neck pain, No shoulder pain, No arm pain; back pain; No hand pain, No leg pain, No foot pain Skin: No Rash, No Lesions, No Jaundice, No Bruising, No Other Objective Vitals Vital Signs Date Time Temp Pulse Resp B/P (MAP) Pulse Ox O2 Delivery O2 Flow Rate FiO2 02/04/25 13:23 97.6 67 16 127/80 (96) 97 97.6 02/04/25 08:00 Room Air* 0 21 Intake/Output Intake and Output 02/04/25 07:00 Intake Total 100 ml Balance 100 ml Intake Oral 100 ml Medications Current Medications Medications Dose Ordered Sig/Titus Route Start Time Stop Time Status Last Admin Dose Admin Atorvastatin Calcium 10 mg HS PO 02/04/25 22:00 Tamsulosin HCl 0.4 mg QPM PO 02/04/25 18:00 Donepezil HCl 10 mg HS PO 02/04/25 22:00 Sodium Chloride 10 ml Q8HR IV 02/04/25 06:00 02/04/25 06:24 10 ML Acetaminophen/ Hydrocodone Bitart 1 tab Q4HP PRN PO 02/03/25 22:30 Ondansetron HCl 4 mg Q4HP PRN IV 02/03/25 22:30 Docusate Sodium 100 mg BIDPRN PRN PO 02/03/25 22:30 Acetaminophen 650 mg Q6HP PRN PO 02/03/25 22:30 Morphine Sulfate 2 mg Q4HPRN PRN IV 02/03/25 22:30 Nitroglycerin 0.4 mg Q5MINP PRN SL 02/03/25 23:30 Morphine Sulfate 2 mg Q30M PRN IV 02/03/25 23:30 Laboratory Results Laboratory Tests 02/04/25 06:35 Chemistry Test 02/03/25 18:35 02/04/25 06:35 Albumin 4.8 g/dL (3.2-4.8) 4.2 g/dL (3.2-4.8) Calcium Level 9.9 mg/dL (8.7-10.4) 9.5 mg/dL (8.7-10.4) Total Protein 8.0 g/dL (5.7-8.2) 7.1 g/dL (5.7-8.2) LFT Test 02/03/25 18:35 02/04/25 06:35 Alanine Aminotransferase (ALT) 21 U/L (7-40) 17 U/L (7-40) Alkaline Phosphatase 75 U/L (46-116) 65 U/L (46-116) Aspartate Amino Transferase (AST) 22 U/L (<34) 17 U/L (<34) Total Bilirubin 1.2 mg/dL (0.2-1.0) H 1.5 mg/dL (0.2-1.0) H Labs and/or images reviewed: Labs reviewed by me, Image(s) reviewed by me Assessment/Plan Assessment/Plan Acute left Pubic ramus fracture, spine surgery consult appreciated advised conservative management Left hip pain Risk for falls Difficulty in walking Abnormal CT scan Compression fracture of L3 vertebra Plan discussed with: Patient Date of Service: Feb 04, 2025 Billing Provider: BENTLEY ALEX MD Common Visit Codes: [id number] INP/OBS CARE(HIGH) BENTLEY ALEX MD Feb 04, 2025 14:10
[2025-02-04] MEDS ORDERED: TAMS-35 PO (16:50)
[2025-02-04] MEDS: TAMSULOSIN HYDROCHLORIDE 0.4 MG CAP PO SCH (18:12)
[2025-02-04] MEDS: DONEPEZIL HYDROCHLORIDE 5 MG TAB PO SCH (21:44)
[2025-02-04] MEDS: ATORVASTATIN 20 MG TAB PO SCH (21:44)
[2025-02-05] VITALS (7 sets, daily range): BP systolic 120–159; BP diastolic 66–83; PULSE 64–83; RESP 16–18; TEMP 97.8–98.5; O2SAT 95–99
[2025-02-05] MEDS: HYDROcodone-ACET 5/325MG TAB PO PRN (07:41)
--- NOTE | 2025-02-05 10:33 | DVHPN2 ---
Reviewed: Care Plan, H&P, Labs, Medications, Previous Orders, Radiology Changes from previous H/P or p: No Changes Eyes: No Pain, No Vision change, No Conjunctivae inflammation, No Eyelid inflammation, No Other, No Redness ENT: No Ear pain, No Ear discharge, No Nose pain, No Nose discharge, No Nose congestion, No Mouth pain, No Mouth swelling, No Throat pain, No Throat swelling, No Other Cardiovascular: No Chest Pain, No Palpitations, No Orthopnea, No Paroxysmal Noc. Dyspnea, No Edema, No Lt Headedness, No Other Respiratory: No Cough, No Dry, No Shortness of breath, No SOB with excertion, No Wheezing, No Hemoptysis, No Pleuritic Pain, No Sputum, No Other Gastrointestinal: No Nausea, No Vomiting, No Abdominal Pain, No Diarrhea, No Constipation, No Melena, No Hematochezia, No Other Genitourinary: No Dysuria, No Frequency, No Incontinence, No Hematuria, No Retention, No Other Musculoskeletal: other (Left hip pain); No neck pain, No shoulder pain, No arm pain; back pain; No hand pain, No leg pain, No foot pain Skin: No Rash, No Lesions, No Jaundice, No Bruising, No Other Objective Vitals Vital Signs Date Time Temp Pulse Resp B/P (MAP) Pulse Ox O2 Delivery O2 Flow Rate FiO2 02/05/25 08:00 71 02/05/25 04:50 98.5 16 120/76 (91) 99 98.5 02/04/25 20:00 Room Air* 0 21 Intake/Output Intake and Output 02/05/25 07:00 Intake Total 900 ml Balance 900 ml Intake Oral 900 ml # Voids 3 Medications Current Medications Medications Dose Ordered Sig/Titus Route Start Time Stop Time Status Last Admin Dose Admin Atorvastatin Calcium 10 mg HS PO 02/04/25 22:00 02/04/25 21:44 10 MG Tamsulosin HCl 0.4 mg QPM PO 02/04/25 18:00 02/04/25 18:12 0.4 MG Donepezil HCl 10 mg HS PO 02/04/25 22:00 02/04/25 21:44 10 MG Sodium Chloride 10 ml Q8HR IV 02/04/25 06:00 02/05/25 06:10 10 ML Acetaminophen/ Hydrocodone Bitart 1 tab Q4HP PRN PO 02/03/25 22:30 02/05/25 07:41 1 TAB Ondansetron HCl 4 mg Q4HP PRN IV 02/03/25 22:30 Docusate Sodium 100 mg BIDPRN PRN PO 02/03/25 22:30 Acetaminophen 650 mg Q6HP PRN PO 02/03/25 22:30 Morphine Sulfate 2 mg Q4HPRN PRN IV 02/03/25 22:30 Nitroglycerin 0.4 mg Q5MINP PRN SL 02/03/25 23:30 Morphine Sulfate 2 mg Q30M PRN IV 02/03/25 23:30 Laboratory Results Laboratory Tests 02/04/25 06:35 Assessment/Plan Assessment/Plan Acute left Pubic ramus fracture, spine surgery consult appreciated advised conservative management Left hip pain Risk for falls Difficulty in walking Compression fracture of L3 vertebra Physical Therapy ordered Will DC tomorrow Plan discussed with: Patient My Orders Orders - BENTLEY ALEX MD Procedure Category Date Status Time Pt Request For Service PT 02/04/25 Logged 14:13 * Industrial Economist CONS 02/05/25 Transmitted Consult Date of Service: Feb 05, 2025 Billing Provider: BENTLEY ALEX MD Common Visit Codes: [id number] INP/OBS CARE(HIGH) BENTLEY ALEX MD Feb 05, 2025 10:33
[2025-02-06 01:00] VITALS: BP 136/76; PULSE 80; RESP 18; TEMP 97.9; O2SAT 97
[2025-02-06 05:00] VITALS: BP 124/78; PULSE 67; RESP 16; TEMP 98.1; O2SAT 96
[2025-02-06 09:00] VITALS: BP 138/81; PULSE 67; RESP 18; TEMP 97.5; O2SAT 96
--- NOTE | 2025-02-06 10:49 | DVHPN2 ---
Reviewed: Care Plan, H&P, Labs, Medications, Previous Orders, Radiology Changes from previous H/P or p: No Changes Eyes: No Pain, No Vision change, No Conjunctivae inflammation, No Eyelid inflammation, No Other, No Redness ENT: No Ear pain, No Ear discharge, No Nose pain, No Nose discharge, No Nose congestion, No Mouth pain, No Mouth swelling, No Throat pain, No Throat swelling, No Other Cardiovascular: No Chest Pain, No Palpitations, No Orthopnea, No Paroxysmal Noc. Dyspnea, No Edema, No Lt Headedness, No Other Respiratory: No Cough, No Dry, No Shortness of breath, No SOB with excertion, No Wheezing, No Hemoptysis, No Pleuritic Pain, No Sputum, No Other Gastrointestinal: No Nausea, No Vomiting, No Abdominal Pain, No Diarrhea, No Constipation, No Melena, No Hematochezia, No Other Genitourinary: No Dysuria, No Frequency, No Incontinence, No Hematuria, No Retention, No Other Musculoskeletal: other (Left hip pain); No neck pain, No shoulder pain, No arm pain; back pain; No hand pain, No leg pain, No foot pain Skin: No Rash, No Lesions, No Jaundice, No Bruising, No Other Objective Vitals Vital Signs Date Time Temp Pulse Resp B/P (MAP) Pulse Ox O2 Delivery O2 Flow Rate FiO2 02/06/25 09:00 97.5 67 18 138/81 (100) 96 97.5 02/06/25 08:00 Room Air* 0 21 Intake/Output Intake and Output 02/06/25 07:00 Intake Total 1880 ml Output Total 275 ml Balance 1605 ml Intake Oral 1880 ml Output Urine Total 275 ml Medications Current Medications Medications Dose Ordered Sig/Titus Route Start Time Stop Time Status Last Admin Dose Admin Atorvastatin Calcium 10 mg HS PO 02/04/25 22:00 02/05/25 21:22 10 MG Tamsulosin HCl 0.4 mg QPM PO 02/04/25 18:00 02/05/25 18:03 0.4 MG Donepezil HCl 10 mg HS PO 02/04/25 22:00 02/05/25 21:22 10 MG Sodium Chloride 10 ml Q8HR IV 02/04/25 06:00 02/06/25 06:14 10 ML Acetaminophen/ Hydrocodone Bitart 1 tab Q4HP PRN PO 02/03/25 22:30 02/05/25 16:31 1 TAB Ondansetron HCl 4 mg Q4HP PRN IV 02/03/25 22:30 Docusate Sodium 100 mg BIDPRN PRN PO 02/03/25 22:30 Acetaminophen 650 mg Q6HP PRN PO 02/03/25 22:30 Morphine Sulfate 2 mg Q4HPRN PRN IV 02/03/25 22:30 Nitroglycerin 0.4 mg Q5MINP PRN SL 02/03/25 23:30 Morphine Sulfate 2 mg Q30M PRN IV 02/03/25 23:30 Laboratory Results Laboratory Tests 02/04/25 06:35 Labs and/or images reviewed: Labs reviewed by me, Image(s) reviewed by me Assessment/Plan Assessment/Plan Acute left Pubic ramus fracture, spine surgery consult appreciated advised conservative management Left hip pain Risk for falls Difficulty in walking Compression fracture of L3 vertebra Plan discussed with: Patient Date of Service: Feb 06, 2025 Billing Provider: BENTLEY ALEX MD Common Visit Codes: [id number] INP/OBS CARE(HIGH) BENTLEY ALEX MD Feb 06, 2025 10:49
[2025-02-06] MEDS ORDERED: HYDR1TAB97 PO (10:52)
--- NOTE | 2025-02-06 10:55 | DVHDS2 ---
Discharge Summary Date of Admission Feb 03, 2025 at 23:22 Date of Discharge: Feb 06, 2025 Admitting Diagnosis Pelvic pain secondary to mechanical fall Wounds: Fracture pubic ramus Labs/Diagnostic Data: Laboratory Results Test 02/04/25 06:35 White Blood Count 6.5 10^3/uL (4.4-10.8) Red Blood Count 4.18 10^6/uL (4.5-5.90) Hemoglobin 13.2 g/dL (13.5-17.5) Hematocrit 37.8 % (41.0-53.0) Mean Corpuscular Volume 90.4 fL (80.0-100.0) Mean Corpuscular Hemoglobin 31.6 pg (28.0-32.0) Mean Corpuscular Hemoglobin Concent 35.0 g/dL (32.0-36.0) Red Cell Distribution Width 13.8 % (11.8-14.3) Platelet Count 146 10^3/uL (140-450) Mean Platelet Volume 8.7 fL (6.9-10.8) Neutrophils (%) (Auto) 78.6 % (37.0-80.0) Lymphocytes (%) (Auto) 13.3 % (10.0-50.0) Monocytes (%) (Auto) 7.2 % (0.0-12.0) Eosinophils (%) (Auto) 0.8 % (0.0-7.0) Basophils (%) (Auto) 0.1 % (0.0-2.0) Neutrophils # (Auto) 5.1 10 ^3/uL (1.6-8.6) Lymphocytes # (Auto) 0.9 10 ^3/uL (0.4-5.4) Monocytes # (Auto) 0.5 10 ^3/uL (0-1.3) Eosinophils # (Auto) 0.1 10 ^3/uL (0-0.8) Basophils # (Auto) 0 10 ^3/uL (0-0.2) Nucleated Red Blood Cells 0.0 % Sodium Level 144 mmol/L (136-145) Potassium Level 3.8 mmol/L (3.5-5.1) Chloride Level 109 mmol/L (98-107) Carbon Dioxide Level 26 mmol/L (20-31) Anion Gap 9 (5-15) Blood Urea Nitrogen 22 mg/dL (9-23) Creatinine 1.19 mg/dL (0.700-1.30) Glomerular Filtration Rate Calc 60 mL/min (>90) BUN/Creatinine Ratio 18.5 (10.0-20.0) Serum Glucose 105 mg/dL (74-106) Calcium Level 9.5 mg/dL (8.7-10.4) Total Bilirubin 1.5 mg/dL (0.2-1.0) Aspartate Amino Transferase (AST) 17 U/L (<34) Alanine Aminotransferase (ALT) 17 U/L (7-40) Alkaline Phosphatase 65 U/L (46-116) Total Protein 7.1 g/dL (5.7-8.2) Albumin 4.2 g/dL (3.2-4.8) Other Laboratory Tests 02/04/25 06:35 Brief Hx & Hospital Course: 84-year-old male had a mechanical fall came in complaining of pain in the left hip CT showed acute left pubic ramus fracture. Spine surgeon was consulted advised conservative management with the pain medication physical therapy. Patient received physical therapy and pain medications also has a compression fracture of L3 vertebra. Being discharged home on [place]. Wheelchair ordered. Caregiver at bedside at the time of discharge. Consults/Reason for consult Orthopedic Operations or Procedures CT pelvis Condition at Discharge: Fair Final Diagnosis/Problems List Acute left Pubic ramus fracture, spine surgery consult appreciated advised conservative management Left hip pain Risk for falls Difficulty in walking Compression fracture of L3 vertebra Discharge Disposition: Home Discharge Instruct/Medications Diet: Cardiac 2g Na,low cholest Activity: Light activity Follow Up/Referral: Follow up With your primary Dr in one week Medications: [place] Sent to the pharmacy 39 (Time taken for discharge summary 39 minutes) Discharge Statement: "Patient was advised to return to the ER or call 911 if any headaches, dizziness, shortness of breath, chest pain, abdominal pain, bleeding, fevers, or worsening of medical condition. Patient was counseled about treatment plan, medications, possible side effects, patientverbalized understanding. All questions were answered to the best of my ability. This discharge took greater then 30 minutes in planning, reviewing documentation, counseling the patient, and discussing with other team members." DME: Diagnosis: Pubic ramus fracture Gait instability ASSESSMENT ASSESSMENT Hospital Course Improved Assessment Acute left Pubic ramus fracture, spine surgery consult appreciated advised conservative management Left hip pain Risk for falls Difficulty in walking Compression fracture of L3 vertebra Date of Service: Feb 06, 2025 Billing Provider: BENTLEY ALEX MD Common Visit Codes: [id number] DISCH DAY >30min BENTLEY ALEX MD Feb 06, 2025 10:54
[2025-02-06 11:17] VITALS: BP 138/81; PULSE 67; RESP 18; TEMP 97.5; O2SAT 96
[2025-02-06] MEDS: ACETAMINOPHEN 325 MG TAB PO PRN (12:20)
[2025-02-06 12:30] VITALS: BP 131/72; PULSE 70; TEMP 96.3
== END 2025-02-06 12:45 | disposition home or self-care (01) | DRG 536 ==
LOC: EDSEX 16:59 → EDBD 16:59 → ER 17:04 → OVERFLOW 23:22 → TELE-EAST 02-04 01:32
PROVIDERS: ADMIT Family Medicine; ATTEND Family Medicine
DX: S32.592A Other specified fracture of left pubis, initial encounter for closed fracture (principal); S32.039A Unspecified fracture of third lumbar vertebra, initial encounter for closed fracture; R26.2 Difficulty in walking, not elsewhere classified; W18.39XA Other fall on same level, initial encounter; Y93.89 Activity, other specified; Y92.89 Other specified places as the place of occurrence of the external cause; Y99.8 Other external cause status; Z79.899 Other long term (current) drug therapy
CPT/HCPCS: 36415; 74176; 80053; 85025; 97110; 97116; 97163; 97530; G0378